=== PATIENT | male | born 1960 | race African-American/Black ===

== ENCOUNTER 2018-08-28 20:56 | Inpatient (IN) | payer BC ==
[2018-08-28] MEDS ORDERED: ASPIRIN 81 MG CHEWABLE TABLETS PO ONE (20:59)
--- NOTE | 2018-08-28 20:59 | PDOC ---
Rapid Medical Evaluation Time Seen by Provider: 08/28/18 20:58 Medical Evaluation: Allergies Allergy/AdvReac Type Severity Reaction Status Date / Time Penicillins Allergy Mild Rash Verified 07/26/13 06:52 08/28/18 20:58 I have performed a brief in-person evaluation of this patient. The patient presents with a chief complaint of: chest tightness with SOB. No pulmonary PMHx Pertinent physical exam findings: 221/115 AF. Speaking in full sentences. I have ordered the following: cardiac w/u The patient will proceed to the ED for further evaluation. Discharge Disposition - Diagnosis Chest tightness - Referrals - Patient Instructions - Post Discharge Activity
[2018-08-28] MEDS ORDERED: ASPIRIN 81 MG CHEWABLE TABLETS ONE (21:14)
[2018-08-28 21:21] LABS: EOS % 6.1 % (0-4.5); HEMATOCRIT 42.4 % (35.4-49); HEMOGLOBIN 14.8 GM/dL (11.7-16.9); LYMPH % 50.1 % (8-40); MCH 31.6 pg (25.7-33.7); MCHC 34.9 g/dl (32.0-35.9); MEAN CELL VOLUME 90.5 fl (80-96); MEAN PLT VOLUME 10.1 fl (7.5-11.1); NEUT % 35.8 % (42.8-82.8); PLATELET COUNT 149 K/MM3 (134-434); RBC 4.69 M/mm3 (4.00-5.60); RDW 13.2 % (11.9-15.9); WHITE BLOOD COUNT 7.5 K/mm3 (4.0-10.0)
[2018-08-28] MEDS ORDERED: HYDROCHLOROTHIAZIDE 25 MG TABLET (FP) PO ONE (21:44)
[2018-08-28] MEDS ORDERED: HYDROCHLOROTHIAZIDE 25 MG TABLET (FP) ONE (21:46)
[2018-08-28] MEDS ORDERED: amLODIPine BESYLATE 5 MG TABLET (FP) PO ONE (21:46)
[2018-08-28] MEDS ORDERED: amLODIPine BESYLATE 5 MG TABLET (FP) ONE (21:51)
[2018-08-28] MEDS ORDERED: ALBUTEROL SO4 2.5/IPRATROPIUM 0.5 INH SOL 3 ML VIAL.NEB. NEB ONE ×2 (21:55→21:57)
--- NOTE | 2018-08-28 22:02 | PDOC ---
Documentation entered by Bruna Luis SCRIBE, acting as scribe for Myra Glass MD. Myra Glass MD: This documentation has been prepared by the pinaibe, Bruna Luis SCRIBE, under my direction and personally reviewed by me in its entirety. I confirm that the documentation accurately reflects all work, treatment, procedures, and medical decision making performed by me. History of Present Illness - General Chief Complaint: Respiratory Stated Complaint: chest tightness/cough Time Seen by Provider: 08/28/18 20:58 History Source: Patient Exam Limitations: No Limitations - History of Present Illness Initial Comments: 08/28/18 21:43 The patient is a 58-year-old male with a past medical history significant for HTN (not compliant with Benicar) presents to the emergency department with chest tightness. The patient presents with intermittent, chest tightness, and cough, thats worse at night time. The patient reports the chest tightness is pleuritic in nature, states he feels like he cant take a good breath. The patient reports recent symptoms of nasal congestion couple of days ago and a single episode of lightheadedness on Monday. The patient reports he was drinking a Albert and watching TV when he felt lightheaded followed by an episode of NBNB vomiting. Denies substernal chest pain, symptoms radiating to the arm, diaphoresis, nausea, vomiting. Allergies: penicillins Social history: Half a pack a day for the past 10 years, social alcohol use. Denies the use of recreational drugs. Surgical history: right knee arthroscopy with PMM and PLM PCP: Dr. Ro. Past History - Past Medical History Allergies/Adverse Reactions: Allergies Allergy/AdvReac Type Severity Reaction Status Date / Time Penicillins Allergy Mild Rash Verified 08/28/18 21:04 Home Medications: Ambulatory Orders NK [No Known Home Medication] 08/28/18 COPD: No HTN: Yes - Immunization History Immunization Up to Date: No - Suicide/Smoking/Psychosocial Hx Smoking Status: No Smoking History: Unknown if ever smoked Have you smoked in the past 12 months: No Number of Cigarettes Smoked Daily: 7 Information on smoking cessation initiated: No 'Breaking Loose' booklet given: 07/25/13 Hx Alcohol Use: No Drug/Substance Use Hx: No Substance Use Type: Alcohol, Marijuana Hx Substance Use Treatment: No Review of Systems - Review of Systems Able to Perform ROS?: Yes Comments:: 08/28/18 21:41 CONSTITUTIONAL: Absent: fever, chills, diaphoresis, generalized weakness, malaise, loss of appetite HEENT: congestions. Absent: rhinorrhea, throat pain, throat swelling, difficulty swallowing, mouth swelling, ear pain, eye pain, visual Changes CARDIOVASCULAR: +chest tightness. Absent: chest pain, syncope, palpitations, irregular heart rate, lightheadedness , peripheral edema RESPIRATORY: +cough. Absent: shortness of breath, dyspnea with exertion, orthopnea, wheezing, stridor , hemoptysis GASTROINTESTINAL: Absent: abdominal pain, abdominal distension, nausea, vomiting, diarrhea, constipation, melena, hematochezia GENITOURINARY: Absent: dysuria, frequency, urgency, hesitancy, hematuria, flank pain, genital pain MUSCULOSKELETAL: Absent: myalgia, arthralgia, joint swelling SKIN: Absent: rash, itching, pallor HEMATOLOGIC/IMMUNOLOGIC: Absent: easy bleeding, easy bruising, lymphadenopathy, frequent infections ENDOCRINE: Absent: unexplained weight gain, unexplained weight loss, heat intolerance, cold intolerance NEUROLOGIC: Absent: headache, focal weakness or paresthesias, dizziness, unsteady gait, seizure, mental status changes, bladder or bowel incontinence PSYCHIATRIC: Absent: anxiety, depression, suicidal or homicidal ideation, hallucinations. *Physical Exam - Vital Signs Last Vital Signs Temp Pulse Resp BP Pulse Ox 98.0 F 73 16 202/123 H 98 08/28/18 20:59 08/28/18 20:59 08/28/18 20:59 08/28/18 20:59 08/28/18 20:59 - Physical Exam Comments: 08/28/18 21:41 GENERAL: Well developed, well nourished. Awake and alert. No acute distress. HEENT: Normocephalic, atraumatic. PERRLA, EOMI. No conjunctival pallor. Sclera are non- icteric. Moist mucous membranes. Oropharynx is clear. NECK: Supple. Full ROM. No JVD. no bruits. CARDIOVASCULAR: Regular rate and rhythm. No murmurs, rubs, or gallops. PULMONARY: +scant coarse expiratory wheezing. Lungs clear to auscultation bilaterally. No rales or rhonchi. ABDOMINAL: No abdominal pain. Soft. Non-tender. Non-distended. No rebound or guarding. MUSCULOSKELETAL Normal range of motion at all joints. No bony deformities or tenderness. No CVA tenderness. EXTREMITIES: No pitting edema. No cyanosis. No clubbing. No edema. No calf tenderness. SKIN: Warm and dry. Normal capillary refill. No rashes. No jaundice. NEUROLOGICAL: Alert, awake, oriented x3. Ambulatory without ataxia. PSYCHIATRIC: Cooperative. Good eye contact. Appropriate mood and affect. ED Treatment Course - LABORATORY CBC & Chemistry Diagram: 08/28/18 21:06 08/28/18 21:06 - ADDITIONAL ORDERS Additional order review: 08/28/18 21:06 RBC 4.69 MCV 90.5 MCHC 34.9 RDW 13.2 MPV 10.1 Neutrophils % 35.8 L Lymphocytes % 50.1 H Monocytes % 7.0 Eosinophils % 6.1 H Basophils % 1.0 - Medications Given in the ED: ED Medications Discontinued Medications Generic Name Dose Route Start Last Admin Trade Name Freq PRN Reason Stop Dose Admin Aspirin 162 mg 08/28/18 20:59 08/28/18 21:25 Asa - PO 08/28/18 21:00 162 mg ONCE ONE Administration Hydrochlorothiazide 25 mg 08/28/18 21:44 08/28/18 21:48 Hctz - PO 08/28/18 21:45 25 mg ONCE ONE Administration Medical Decision Making - Medical Decision Making 08/28/18 21:54 58-year-old male presents because of several days of chest tightness and cough. He denies fever, chills, but he states he's had some productive cough and nasal congestion. He does have seasonal allergies. The cough and chest tightness are worsen in the evening. On exam, he does have some scanttered coarse wheezing -the chest tightness he feels is pleuretic and associated with deep breaths -he presented with significant hypertension with systolic in the 200's but he denies any substernal chest pain,GÓMEZ,nausea,vomiting or visual changes,dizziness 08/28/18 23:03 he was given a combivent and now his lungs are clear and he feels much better cxr normal mediastinum,no ptx,no infiltrates,no effusions 08/28/18 23:27 cbc unremarkable chemistries first troponin is negative creatinine is wnl 08/28/18 23:41 08/29/18 02:10 d dimer is greater than 1500 and so therefore a CT of the chest was obtained and it does show a pulmonary embolus in the right lower lobe he will be admitted for anticoagulation and blood pressure control. PCP is 08/29/18 02:44 ordered INR/PTT 08/29/18 03:[address] Rivers and pt admitted to telemetry pt 's siblings had a history of brain aneurysms ,will get ct scan head prior to anti coagulation 08/29/18 03:30 *DC/Admit/Observation/Transfer Diagnosis at time of Disposition: Pulmonary embolism Qualifiers: Pulmonary embolism type: unspecified Chronicity: acute Acute cor pulmonale presence: without acute cor pulmonale Qualified Code(s): I26.99 - Other pulmonary embolism without acute cor pulmonale Hypertension Qualifiers: Hypertension type: essential hypertension Qualified Code(s): I10 - Essential ( primary) hypertension - Discharge Dispostion Decision to Admit order: Yes - Referrals - Patient Instructions - Post Discharge Activity
[2018-08-28 22:13] LABS: ALBUMIN 3.9 g/dl (3.4-5.0); ALK PHOS 124 U/L (45-117); ANION GAP 7 MMOL/L (8-16); BILIRUBIN,TOTAL 0.4 mg/dL (0.2-1); BLOOD UREA NITROGEN 13.4 mg/dL (7-18); CALCIUM 8.9 mg/dL (8.5-10.1); CHLORIDE 106 mmol/L (98-107); CO2 26 mmol/L (21-32); CREATININE 1.3 mg/dL (0.55-1.3); GLUCOSE,RANDOM 99 mg/dL (74-106); MAGNESIUM 2.2 mg/dL (1.8-2.4); POTASSIUM 4.2 mmol/L (3.5-5.1); SGOT/AST 42 U/L (15-37); SGPT/ALT 37 U/L (13-61); SODIUM 139 mmol/L (136-145); TOT PROT 7.2 g/dl (6.4-8.2)
[2018-08-28 22:34] LABS: INR 1.03 (0.83-1.09); PROTHROMBIN TIME (PATIENT) 12.1 SEC (9.7-13.0)
[2018-08-28] MEDS ORDERED: LABETALOL HCL 100 MG TABLET (FP) PO ONE (23:25)
[2018-08-28] MEDS ORDERED: LABETALOL HCL 100 MG TABLET (FP) ONE (23:31)
[2018-08-29] MEDS ORDERED: SODIUM CHLORIDE 1,000 ML IV STA (00:46)
[2018-08-29] MEDS ORDERED: VALSARTAN 40 MG TABLET (FP) PO ONE ×2 (01:57→03:12)
[2018-08-29] MEDS ORDERED: VALSARTAN 80 MG TABLET (UD) ONE ×2 (02:22→03:26)
[2018-08-29] MEDS ORDERED: HEPARIN NA (PORCINE) 5,000 UNITS/ML 1ML VIAL IVPUSH ONE ×2 (02:45→03:04)
[2018-08-29] MEDS ORDERED: HEPARIN NA (PORCINE) 5,000 UNITS/ML 1ML VIAL ONE (02:51)
[2018-08-29] MEDS ORDERED: SODIUM CHLORIDE 0.9% 500 ML INFUS.BAG IV ONE (04:03)
--- NOTE | 2018-08-29 04:13 | HP ---
Admitting History and Physical - Primary Care Physician PCP: Jennifer Ro - Admission Chief Complaint: Chest Tightness, Cough History of Present Illness: This is a 58 y/o man with a past medical history of HTN (non-compliant). Who presents to the ED with chest tightness and productive cough- white/yellow thick phlegm x several days. Patient reports noting increased SOB on rest, GLASS, orthopnea and wheezing. He reports that his cough his worse at night. Patient reports smoking Zaid (vape) for the last 3 weeks. Patient denies fever, chills, dizziness, GÓMEZ, blurred vision, palpitations, AP, N/V/D, constipation, dysuria. Patient denies recent travel. History Source: Patient Limitations to Obtaining History: No Limitations - Past Medical History Cardiovascular: Yes: HTN - Past Surgical History Additional Past Surgical History: Right Meniscal Repair - Smoking History Smoking history: Current every day smoker Have you smoked in the past 12 months: Yes Aproximately how many cigarettes per day: 7 - Alcohol/Substance Use Hx Alcohol Use: Yes (Occasional) History of Substance Use: reports: None - Social History Usual Living Arrangement: Yes: With Significant Other, With Child ADL: Independent Occupation: Clerical- [employer] History of Recent Travel: No Home Medications - Allergies Allergies/Adverse Reactions: Allergies Allergy/AdvReac Type Severity Reaction Status Date / Time Penicillins Allergy Mild Rash Verified 08/28/18 21:04 - Home Medications Home Medications: Ambulatory Orders NK [No Known Home Medication] 08/28/18 Home Medications (free text): Benicar 5mg po QD Family Disease History - Family Disease History Family Disease History: Heart Disease: Mother (CAD, HTN), CA: Father (Stomach), Respiratory: Brother (PE), Other: Sister (Brain Aneurysm) Review of Systems - Review of Systems Constitutional: reports: No Symptoms Eyes: reports: No Symptoms HENT: reports: No Symptoms Neck: reports: No Symptoms Cardiovascular: reports: Other (Chest Tightness) Respiratory: reports: Cough, Orthopnea, SOB, SOB on Exertion, Wheezing Gastrointestinal: reports: No Symptoms Genitourinary: reports: No Symptoms Breasts: reports: No Symptoms Reported Musculoskeletal: reports: No Symptoms Integumentary: reports: No Symptoms Neurological: reports: No Symptoms Endocrine: reports: No Symptoms Hematology/Lymphatic: reports: No Symptoms Psychiatric: reports: No Symptoms Physical Examination Vital Signs: Vital Signs Temperature 98.0 F 08/28/18 20:59 Pulse Rate 60 08/29/18 02:00 Respiratory Rate 18 08/28/18 22:17 Blood Pressure 178/104 H 08/29/18 03:00 O2 Sat by Pulse Oximetry (%) 97 08/29/18 02:00 Constitutional: Yes: Well Nourished, No Distress, Calm Eyes: Yes: WNL, Conjunctiva Clear, EOM Intact, PERRL HENT: Yes: WNL, Atraumatic, Normocephalic Neck: Yes: WNL, Supple, Trachea Midline Cardiovascular: Yes: WNL, Regular Rate and Rhythm, S1, S2 Respiratory: Yes: Diminished Gastrointestinal: Yes: WNL, Normal Bowel Sounds, Soft Renal/: Yes: WNL Breast(s): Yes: WNL Musculoskeletal: Yes: WNL Extremities: Yes: WNL Edema: No Peripheral Pulses WNL: Yes Neurological: Yes: WNL, Alert, Oriented, Cran Nerves II-XII Intact ...Motor Strength: WNL Psychiatric: Yes: WNL, Alert, Oriented Labs: CBC, BMP 08/28/18 21:06 08/28/18 21:06 Laboratory Results - last 24 hr 08/28/18 08/28/18 08/28/18 21:06 21:06 21:06 WBC 7.5 RBC 4.69 Hgb 14.8 Hct 42.4 MCV 90.5 MCH 31.6 MCHC 34.9 RDW 13.2 Plt Count 149 MPV 10.1 Absolute Neuts (auto) 2.7 Neutrophils % 35.8 L Lymphocytes % 50.1 H Monocytes % 7.0 Eosinophils % 6.1 H Basophils % 1.0 Nucleated RBC % 0 PT with INR 12.10 INR 1.03 PTT (Actin FS) D-Dimer Sodium 139 Potassium 4.2 Chloride 106 Carbon Dioxide 26 Anion Gap 7 L BUN 13.4 Creatinine 1.3 Est GFR (CKD-EPI)AfAm 70.69 Est GFR (CKD-EPI)NonAf 60.99 Random Glucose 99 Calcium 8.9 Magnesium 2.2 Total Bilirubin 0.4 AST 42 H ALT 37 Alkaline Phosphatase 124 H Creatine Kinase 436 H Creatine Kinase Index 0.7 CK-MB (CK-2) 3.1 Troponin I < 0.02 B-Natriuretic Peptide 36.0 Total Protein 7.2 Albumin 3.9 Stool Occult Blood 08/29/18 08/29/18 08/29/18 00:01 00:01 03:15 WBC RBC Hgb Hct MCV MCH MCHC RDW Plt Count MPV Absolute Neuts (auto) Neutrophils % Lymphocytes % Monocytes % Eosinophils % Basophils % Nucleated RBC % PT with INR Cancelled INR Cancelled PTT (Actin FS) D-Dimer 1536 H Sodium Potassium Chloride Carbon Dioxide Anion Gap BUN Creatinine Est GFR (CKD-EPI)AfAm Est GFR (CKD-EPI)NonAf Random Glucose Calcium Magnesium Total Bilirubin AST ALT Alkaline Phosphatase Creatine Kinase Creatine Kinase Index CK-MB (CK-2) Troponin I < 0.02 B-Natriuretic Peptide Total Protein Albumin Stool Occult Blood 08/29/18 08/29/18 03:54 04:00 WBC RBC Hgb Hct MCV MCH MCHC RDW Plt Count MPV Absolute Neuts (auto) Neutrophils % Lymphocytes % Monocytes % Eosinophils % Basophils % Nucleated RBC % PT with INR 12.00 INR 1.02 PTT (Actin FS) 30.1 D-Dimer Sodium Potassium Chloride Carbon Dioxide Anion Gap BUN Creatinine Est GFR (CKD-EPI)AfAm Est GFR (CKD-EPI)NonAf Random Glucose Calcium Magnesium Total Bilirubin AST ALT Alkaline Phosphatase Creatine Kinase Creatine Kinase Index CK-MB (CK-2) Troponin I B-Natriuretic Peptide Total Protein Albumin Stool Occult Blood Negative Intake & Output 08/26/18 08/27/18 08/28/18 08/29/18 23:59 23:59 23:59 23:59 Weight 104.326 kg Imaging - Results Cat Scan: Report Reviewed, Image Reviewed EKG: Image Reviewed Problem List - Problems (1) Hypertensive urgency Assessment/Plan: Likely secondary to non-compliance Cardiac monitoring Serial Enzymes Head CT- neg ICH, mass or lesion Labetolol, Norvasc, HCTZ given in ED Will continue Diovan secondary to Benicar NF Appreciate Cardiology consult Echo Renal US Continue home med Monitor renal function Code(s): I16.0 - HYPERTENSIVE URGENCY (2) Pulmonary embolism Assessment/Plan: CTA report- right sided PE Will treat with Lovenox Chest Xray image-reviewed Continue cardiac monitoring O2 Appreciate Pulmonology consult Code(s): I26.99 - OTHER PULMONARY EMBOLISM WITHOUT ACUTE COR PULMONALE Qualifiers: Pulmonary embolism type: unspecified Chronicity: acute Acute cor pulmonale presence: without acute cor pulmonale Qualified Code(s): I26.99 - Other pulmonary embolism without acute cor pulmonale (3) Tobacco dependence Assessment/Plan: Patient counseled on smoking cessation Offered Nicotine Patch- patient declined Code(s): F17.200 - NICOTINE DEPENDENCE, UNSPECIFIED, UNCOMPLICATED (4) Non-nicotine vapor product user Assessment/Plan: See above Code(s): Z78.9 - OTHER SPECIFIED HEALTH STATUS Assessment/Plan This is a 58 y/o man with a PMHx of HTN (non-compliant). Admitted to Telemetry for Hypertensive Urgency, Acute Pulmonary Embolism for further evaluation of their emergent condition. Plan: See Problem List FEN PO Fluids as tolerated Replete lytes prn Low Na Diet DVT ppx OOB SCD Lovenox SQ Dispo: Requires Inpatient Care Visit type - Emergency Visit Emergency Visit: Yes ED Registration Date: 08/28/18 Care time: The patient presented to the Emergency Department on the above date and was hospitalized for further evaluation of their emergent condition. - New Patient This patient is new to me today: Yes Date on this admission: 08/29/18 - Critical Care Critical Care patient: No
[2018-08-29 04:30] LABS: INR 1.02 (0.83-1.09)
[2018-08-29 04:33] LABS: ACTIVATED PTT 30.1 SECONDS (25.2-36.5)
[2018-08-29] MEDS ORDERED: ENOXAPARIN NA (PORCINE) 100 MG/1 ML DISP.SYRIN SQ ONE (04:47)
[2018-08-29] MEDS: ENOXAPARIN NA (PORCINE) 100 MG/1 ML DISP.SYRIN SQ SCH ×2 (04:50→22:34)
--- NOTE | 2018-08-29 08:52 | EKG ---
Test Reason : Blood Pressure : / mmHG Vent. Rate : 065 BPM Atrial Rate : 065 BPM P-R Int : 152 ms QRS Dur : 092 ms QT Int : 398 ms P-R-T Axes : 071 -07 042 degrees QTc Int : 413 ms NORMAL SINUS RHYTHM SEPTAL INFARCT , AGE UNDETERMINED ABNORMAL ECG NO PREVIOUS ECGS AVAILABLE Confirmed by MARTINA TORRES, IKE ([id number]) on 08/29/2018 8:51:48 AM Referred By: Confirmed By:IKE MACK MD
[2018-08-29 10:01] LABS: BASO % 0.8 % (0-2.0); EOS % 6.4 % (0-4.5); HEMATOCRIT 45.2 % (35.4-49); HEMOGLOBIN 15.3 GM/dL (11.7-16.9); LYMPH % 40.4 % (8-40); MCH 30.5 pg (25.7-33.7); MCHC 33.8 g/dl (32.0-35.9); MEAN CELL VOLUME 90.3 fl (80-96); MEAN PLT VOLUME 9.8 fl (7.5-11.1); MONO % 6.6 % (3.8-10.2); NEUT % 45.8 % (42.8-82.8); PLATELET COUNT 159 K/MM3 (134-434); WHITE BLOOD COUNT 5.4 K/mm3 (4.0-10.0)
[2018-08-29 10:30] LABS: ALBUMIN 4.2 g/dl (3.4-5.0); ALK PHOS 97 U/L (45-117); ANION GAP 7 MMOL/L (8-16); BILIRUBIN,TOTAL 0.4 mg/dL (0.2-1); BLOOD UREA NITROGEN 11.5 mg/dL (7-18); CALCIUM 9.2 mg/dL (8.5-10.1); CHLORIDE 105 mmol/L (98-107); CHOLESTEROL 153 mg/dL (50-200); CO2 27 mmol/L (21-32); CREATININE 1.1 mg/dL (0.55-1.3); GLUCOSE,RANDOM 119 mg/dL (74-106); HDL CHOLESTEROL 56 mg/dL (40-60); MAGNESIUM 2.2 mg/dL (1.8-2.4); PHOSPHOROUS 3.5 mg/dL (2.5-4.9); POTASSIUM 3.7 mmol/L (3.5-5.1); SGOT/AST 36 U/L (15-37); SGPT/ALT 40 U/L (13-61); SODIUM 139 mmol/L (136-145); TOT PROT 7.6 g/dl (6.4-8.2); TRIGLYCERIDES 96 mg/dL (0-150)
[2018-08-29] MEDS: VALSARTAN 40 MG TABLET (FP) PO SCH (11:30)
[2018-08-29] MEDS ORDERED: ALBUTEROL SO4 2.5/IPRATROPIUM 0.5 INH SOL 3 ML VIAL.NEB. NEB ONE (11:38)
[2018-08-29] MEDS: ALBUTEROL SO4 2.5/IPRATROPIUM 0.5 INH SOL 3 ML VIAL.NEB. NEB PRN (11:44)
--- NOTE | 2018-08-29 13:10 | CON.PULM ---
Consult Consult Specialty:: PULMONARY Referred by:: Dr Ro Reason for Consultation:: shortness of breath - History of Present Illness Chief Complaint: shortness of breath History of Present Illness: 58yo male with h/o HTN who presents with worsening shortness of breath for the past week. Denies chest pain or palpitations. Does report a cough with white sputum with occasional wheezing. No fevers, chills or sweats. CTA chest done showing bilateral subsegmental pulmonary emboli. Denies prolonged sedentary periods or leg trauma. No recent surgeries. He is a smoker. Brother at bedside states he had pulmonary emboli in the past and has a lipoprotein disorder. 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[employer] History of Recent Travel: No Home Medications - Allergies Allergies/Adverse Reactions: Allergies Allergy/AdvReac Type Severity Reaction Status Date / Time Penicillins Allergy Mild Rash Verified 08/28/18 21:04 - Home Medications Home Medications: Ambulatory Orders NK [No Known Home Medication] 08/28/18 Family Disease History - Family Disease History Family Disease History: Heart Disease: Mother (CAD, HTN), CA: Father (Stomach), Respiratory: Brother (PE), Other: Sister (Brain Aneurysm) Review of Systems - Review of Systems Constitutional: denies: Chills, Fever Eyes: denies: Recent Change in Vision HENT: denies: Nasal Congestion, Throat Pain Neck: denies: Stiffness, Tenderness Cardiovascular: reports: Shortness of Breath. denies: Chest Pain, Palpitations Respiratory: reports: Cough, Wheezing. denies: Hemoptysis Gastrointestinal: denies: Abdominal Pain, Nausea, Vomiting Genitourinary: denies: Dysuria, Hematuria Neurological: denies: Dizziness, Headache Endocrine: denies: Unexplained Weight Loss Physical Exam Vital Sings: Vital Signs Temperature 97.1 F L 08/29/18 11:54 Pulse Rate 63 08/29/18 11:54 Respiratory Rate 18 08/29/18 11:54 Blood Pressure 136/90 08/29/18 11:54 O2 Sat by Pulse Oximetry (%) 97 08/29/18 06:00 Constitutional: Yes: Calm Eyes: Yes: Conjunctiva Clear, EOM Intact HENT: Yes: Atraumatic, Normocephalic Neck: Yes: Supple, Trachea Midline Cardiovascular: Yes: Regular Rate and Rhythm Respiratory: Yes: Regular, CTA Bilaterally ...Clubbing: No Gastrointestinal: Yes: Normal Bowel Sounds, Soft. No: Tenderness Edema: No Neurological: Yes: Alert, Oriented Labs: CBC, BMP 08/29/18 09:37 08/29/18 09:37 Imaging - Results Chest X-ray: Report Reviewed, Image Reviewed Cat Scan: Report Reviewed, Image Reviewed (bilateral subsegmental PE) Problem List - Problems (1) Pulmonary embolism Code(s): I26.99 - OTHER PULMONARY EMBOLISM WITHOUT ACUTE COR PULMONALE Qualifiers: Pulmonary embolism type: unspecified Chronicity: acute Acute cor pulmonale presence: without acute cor pulmonale Qualified Code(s): I26.99 - Other pulmonary embolism without acute cor pulmonale (2) Hypertensive urgency Code(s): I16.0 - HYPERTENSIVE URGENCY Assessment/Plan Acute Pulmonary Emboli Hypertensive Urgency Smoker - continue anticoagulation - will need hypercoagulable work up as outpt given family history - f/u echocardiogram - LE dopplers - smoking cessation - outpt PFTs Thank you for this consult Jose Duran MD
--- NOTE | 2018-08-29 14:10 | ECHO ---
Name: RODRIGUEZ YANG Exam:Adult Echocardiogram Study Date: 08/29/2018 07:54 AM Age: 58 yrs Reason For Study: PULMONARY EMBOLISM Height: 74 in Weight: 238 lb BSA: 2.3 m2 MMode/2D Measurements & Calculations IVSd: 0.80 cm Ao root diam: 3.2 cm LVIDd: 4.9 cm LA dimension: 2.9 cm LVIDs: 3.0 cm LVPWd: 0.77 cm EDV(Teich): 114.1 ml LVOT diam: 2.3 cm ESV(Teich): 36.4 ml Doppler Measurements & Calculations MV E max darrell: 57.3 cm/sec Ao V2 max: 108.6 cm/sec MV A max darrell: 48.9 cm/sec Ao max P.7 mmHg MV E/A: 1.2 Ao V2 mean: 70.9 cm/sec Ao mean P.3 mmHg Ao V2 VTI: 20.0 cm LOIS(I,D): 3.3 cm2 LOIS(V,D): 3.2 cm2 LV V1 max P.8 mmHg SV(LVOT): 66.4 ml LV V1 mean P.3 mmHg LV V1 max: 83.4 cm/sec LV V1 mean: 53.4 cm/sec LV V1 VTI: 16.2 cm TR max darrell: 254.6 cm/sec PI end-d darrell: 84.4 cm/sec TR max P.9 mmHg Med Peak E' Darrell: 6.1 cm/sec Med E/e': 9.3 Lat Peak E' Darrell: 6.6 cm/sec Lat E/e': 8.7 Procedure A two-dimensional transthoracic echocardiogram with color flow and Doppler was performed. Left Ventricle The left ventricular size, thickness and function are normal. The left ventricular ejection fraction is normal. The left ventricular wall motion is normal. Right Ventricle The right ventricle is normal in size and function. Atria Normal left and right atrial size and function. The atrial septum is aneurysmal. Mitral Valve There is mild mitral valve thickening. There is no mitral valve stenosis. There is trace to mild mitr al regurgitation. Tricuspid Valve The tricuspid valve is normal in structure and function. There is no tricuspid stenosis. There is Tra ce to mild tricuspid regurgitation. Right ventricular systolic pressure is normal. Aortic Valve The aortic valve is not well visualized. No hemodynamically significant valvular aortic stenosis. No aortic regurgitation is present. Pulmonic Valve The pulmonic valve is not well visualized. There is no pulmonic valvular stenosis. Mild pulmonic valv ular regurgitation. Great Vessels The aortic root is normal size. Pericardium/Pleura There is no pericardial effusion. Interpretation Summary The left ventricular size, thickness and function are normal The left ventricular ejection fraction is normal. The left ventricular wall motion is normal. There is mild mitral valve thickening. There is trace to mild mitral regurgitation. There is Trace to mild tricuspid regurgitation. Right ventricular systolic pressure is normal. The atrial septum is aneurysmal. MD Lucien Hilton 08/29/2018 02:09 PM
--- NOTE | 2018-08-29 17:02 | CON.CARD ---
Consult Consult Specialty:: Cardiology Reason for Consultation:: HTN. SOB. Chest Pain - History of Present Illness Chief Complaint: Presently he is comfortable History of Present Illness: This is a 58-year-old male with a past medical history significant for HTN (not compliant with Benicar). He has been experiencing some GLASS which he states is worse after he vaps. He also intermittently smokes. He also complained of pleuritc chest pain, worse with a deep breath. An echocardiogram was performed and showed normal LV size and function, and normal RV size and function. EKG NSR at 62 BPM with normal intervals, normal axis, PRWP from V1 to V2 and NSSTTW changes. ' Negative troponins - Past Medical History Cardio/Vascular: Yes: HTN - Alcohol/Substance Use Hx Alcohol Use: Yes (Occasional) History of Substance Use: reports: None - Smoking History Smoking history: Current every day smoker Have you smoked in the past 12 months: Yes Aproximately how many cigarettes per day: 7 - Social History ADL: Independent Occupation: Clerical- [employer] History of Recent Travel: No Home Medications - Allergies Allergies/Adverse Reactions: Allergies Allergy/AdvReac Type Severity Reaction Status Date / Time Penicillins Allergy Mild Rash Verified 08/28/18 21:04 - Home Medications Home Medications: Ambulatory Orders NK [No Known Home Medication] 08/28/18 Family Disease History - Family Disease History Family Disease History: Heart Disease: Mother (CAD, HTN), CA: Father (Stomach), Respiratory: Brother (PE), Other: Sister (Brain Aneurysm) Review of Systems Unable to obtain ROS, reason: As per HPI Vital Signs: Vital Signs Temperature 97.1 F L 08/29/18 11:54 Pulse Rate 63 08/29/18 11:54 Respiratory Rate 18 08/29/18 11:54 Blood Pressure 136/90 08/29/18 11:54 O2 Sat by Pulse Oximetry (%) 97 08/29/18 06:00 - Other Data Labs, Other Data: CBC, BMP 08/29/18 09:37 08/29/18 09:37 INR, PTT INR 1.02 (0.83-1.09) 08/29/18 04:00 Troponin, BNP 08/28/18 08/29/18 08/29/18 21:06 00:01 09:37 Troponin I < 0.02 < 0.02 < 0.02 B-Natriuretic Peptide 36.0 08/29/18 15:00 Troponin I < 0.02 B-Natriuretic Peptide Troponin, BNP 08/28/18 08/29/18 08/29/18 21:06 00:01 09:37 Troponin I < 0.02 < 0.02 < 0.02 B-Natriuretic Peptide 36.0 08/29/18 15:00 Troponin I < 0.02 B-Natriuretic Peptide Assessment/Plan 58-year-old male with a past medical history significant for HTN (not compliant with Benicar). He has been experiencing some GLASS which he states is worse after he vaps. He also intermittently smokes. He also complained of pleuritc chest pain, worse with a deep breath. An echocardiogram was performed and showed normal LV size and function, and normal RV size and function. EKG NSR at 62 BPM with normal intervals, normal axis, PRWP from V1 to V2 and NSSTTW changes. ' Negative troponins BP now under good control CT scan states: "bilateral lower love emboli seen, greater on the right" Agree with AC Positive FH for hypercoaguable state BP presently under good control Yulia Swenson
--- NOTE | 2018-08-29 17:14 | PN ---
Progress Note, Physician Chief Complaint: Pulmonary Embolism Hypertensive Urgency History of Present Illness: Previous notes and events reviewed awake and alert NAD denies complaints of SOB or chest pain - Current Medication List Current Medications: Active Medications Albuterol/Ipratropium (Duoneb -) 1 amp NEB Q6H PRN PRN Reason: SHORTNESS OF BREATH Last Admin: 08/29/18 11:44 Dose: 1 amp Enoxaparin Sodium (Lovenox -) 100 mg SQ BID [facility] Last Admin: 08/29/18 04:50 Dose: 100 mg Valsartan (Diovan -) 40 mg PO DAILY [facility] Last Admin: 08/29/18 11:30 Dose: 40 mg - Objective Vital Signs: Vital Signs Temperature 97.1 F L 08/29/18 11:54 Pulse Rate 63 08/29/18 11:54 Respiratory Rate 18 08/29/18 11:54 Blood Pressure 136/90 08/29/18 11:54 O2 Sat by Pulse Oximetry (%) 97 08/29/18 06:00 Constitutional: Yes: No Distress, Calm Eyes: Yes: Conjunctiva Clear HENT: Yes: Atraumatic Cardiovascular: Yes: Regular Rate and Rhythm Respiratory: Yes: Regular, CTA Bilaterally Gastrointestinal: Yes: Normal Bowel Sounds, Soft Musculoskeletal: Yes: WNL Extremities: Yes: WNL Edema: No Neurological: Yes: Alert, Oriented Psychiatric: Yes: Alert, Oriented Labs: CBC, BMP 08/29/18 09:37 08/29/18 09:37 INR, PTT INR 1.02 (0.83-1.09) 08/29/18 04:00 Troponin, BNP 08/28/18 08/29/18 08/29/18 21:06 00:01 09:37 Troponin I < 0.02 < 0.02 < 0.02 B-Natriuretic Peptide 36.0 08/29/18 15:00 Troponin I < 0.02 B-Natriuretic Peptide Problem List - Problems (1) Hypertensive urgency Assessment/Plan: -Diovan -low Na diet -cardiology on board Code(s): I16.0 - HYPERTENSIVE URGENCY (2) Pulmonary embolism Assessment/Plan: -Cardiology and Pulm on board -CTA shows bilateral lower lobe emboli greater on R -Lovenox 100mg SQ BID -bilateral LE doppler ordered -hypercoaguable state work up as outpatient Code(s): I26.99 - OTHER PULMONARY EMBOLISM WITHOUT ACUTE COR PULMONALE Qualifiers: Pulmonary embolism type: unspecified Chronicity: acute Acute cor pulmonale presence: without acute cor pulmonale Qualified Code(s): I26.99 - Other pulmonary embolism without acute cor pulmonale Assessment/Plan see problem list
[2018-08-30 00:32] VITALS: BMI 30.6
[2018-08-30 07:56] LABS: ALBUMIN 3.9 g/dl (3.4-5.0); BILIRUBIN,TOTAL 0.4 mg/dL (0.2-1); BLOOD UREA NITROGEN 13.1 mg/dL (7-18); CALCIUM 9.1 mg/dL (8.5-10.1); CREATININE 1.1 mg/dL (0.55-1.3); TOT PROT 7.2 g/dl (6.4-8.2)
[2018-08-30] MEDS: ALBUTEROL SO4 2.5/IPRATROPIUM 0.5 INH SOL 3 ML VIAL.NEB. NEB PRN (08:14)
[2018-08-30 08:40] LABS: HEMATOCRIT 45.3 % (35.4-49); HEMOGLOBIN 15.3 GM/dL (11.7-16.9); MCH 30.6 pg (25.7-33.7); MCHC 33.8 g/dl (32.0-35.9); MEAN CELL VOLUME 90.6 fl (80-96); RDW 13.6 % (11.9-15.9); WHITE BLOOD COUNT 5.9 K/mm3 (4.0-10.0)
[2018-08-30 09:15] LABS: PLATELET COUNT 162 K/MM3 (134-434)
--- NOTE | 2018-08-30 11:08 | PN ---
Progress Note (short form) - Note Progress Note: No CP or SOB. No acute events overnight. Duplex (-) DVT ECHO: EF normal / No Right heart strain Intake & Output 08/27/18 08/28/18 08/29/18 08/30/18 23:59 23:59 23:59 23:59 Intake Total 370 Balance 370 Weight 230 lb 238 lb 9.6 oz Last Vital Signs Temp Pulse Resp BP Pulse Ox 98.0 F 61 18 153/96 95 08/30/18 06:00 08/30/18 06:00 08/30/18 06:00 08/30/18 06:00 08/30/18 05:00 Active Medications Albuterol/Ipratropium (Duoneb -) 1 amp NEB Q6H PRN PRN Reason: SHORTNESS OF BREATH Last Admin: 08/30/18 08:14 Dose: 1 amp Enoxaparin Sodium (Lovenox -) 100 mg SQ BID [facility] Last Admin: 08/29/18 22:34 Dose: 100 mg Valsartan (Diovan -) 40 mg PO DAILY [facility] Last Admin: 08/29/18 11:30 Dose: 40 mg Constitutional: Yes: NAD Eyes: Yes: Conjunctiva Clear, EOM Intact HENT: Yes: Atraumatic, Normocephalic Neck: Yes: Supple, Trachea Midline Cardiovascular: Yes: Regular Rate and Rhythm Respiratory: Yes: Regular, CTA Bilaterally ...Clubbing: No Gastrointestinal: Yes: Normal Bowel Sounds, Soft. No: Tenderness Edema: No Neurological: Yes: Alert, Oriented Labs: Laboratory Results - last 24 hr 08/29/18 08/30/18 08/30/18 15:00 06:05 06:05 WBC 5.9 RBC 5.00 Hgb 15.3 Hct 45.3 MCV 90.6 MCH 30.6 MCHC 33.8 RDW 13.6 Plt Count 162 MPV 11.0 D Sodium 140 Potassium 4.0 Chloride 106 Carbon Dioxide 28 Anion Gap 6 L BUN 13.1 Creatinine 1.1 Est GFR (CKD-EPI)AfAm 86.52 Est GFR (CKD-EPI)NonAf 74.65 Random Glucose 86 Calcium 9.1 Total Bilirubin 0.4 AST 27 ALT 34 Alkaline Phosphatase 98 Troponin I < 0.02 Total Protein 7.2 Albumin 3.9 Problem List - Problems (1) Pulmonary embolism Code(s): I26.99 - OTHER PULMONARY EMBOLISM WITHOUT ACUTE COR PULMONALE Qualifiers: Pulmonary embolism type: unspecified Chronicity: acute Acute cor pulmonale presence: without acute cor pulmonale Qualified Code(s): I26.99 - Other pulmonary embolism without acute cor pulmonale (2) Hypertensive urgency Code(s): I16.0 - HYPERTENSIVE URGENCY Assessment/Plan Acute Bilateral Pulmonary Emboli Hypertensive Urgency Smoker (-) DVT - Lovenox BID. Can change to DOAC - will need hypercoagulable work up as outpt given family history - smoking cessation - outpt PFTs Dr Cabrera
[2018-08-30] MEDS: VALSARTAN 40 MG TABLET (FP) PO SCH (11:39)
[2018-08-30] MEDS: ENOXAPARIN NA (PORCINE) 100 MG/1 ML DISP.SYRIN SQ SCH (11:39)
--- NOTE | 2018-08-30 13:29 | PN ---
Progress Note, Physician Chief Complaint: patient seen and examined on lovenox bid - Current Medication List Current Medications: Active Medications Albuterol/Ipratropium (Duoneb -) 1 amp NEB Q6H PRN PRN Reason: SHORTNESS OF BREATH Last Admin: 08/30/18 08:14 Dose: 1 amp Enoxaparin Sodium (Lovenox -) 100 mg SQ BID [facility] Last Admin: 08/30/18 11:39 Dose: 100 mg Valsartan (Diovan -) 40 mg PO DAILY [facility] Last Admin: 08/30/18 11:39 Dose: 40 mg - Objective Vital Signs: Vital Signs Temperature 97.5 F L 08/30/18 13:21 Pulse Rate 62 08/30/18 13:21 Respiratory Rate 18 08/30/18 13:21 Blood Pressure 127/73 08/30/18 13:21 O2 Sat by Pulse Oximetry (%) 95 08/30/18 05:00 Constitutional: Yes: Calm Cardiovascular: Yes: Regular Rate and Rhythm, S1, S2 Respiratory: Yes: CTA Bilaterally Gastrointestinal: Yes: Normal Bowel Sounds, Soft Edema: No Neurological: Yes: Alert, Oriented Labs: CBC, BMP 08/30/18 06:05 08/30/18 06:05 INR, PTT INR 1.02 (0.83-1.09) 08/29/18 04:00 Problem List - Problems (1) Hypertension Assessment/Plan: [place] Code(s): I10 - ESSENTIAL (PRIMARY) HYPERTENSION Qualifiers: Hypertension type: essential hypertension Qualified Code(s): I10 - Essential (primary) hypertension (2) Pulmonary embolism Assessment/Plan: change lovenox to eliquis echo left and right ventricle systolic pressure normal venous doppler no dvt Code(s): I26.99 - OTHER PULMONARY EMBOLISM WITHOUT ACUTE COR PULMONALE Qualifiers: Pulmonary embolism type: unspecified Chronicity: acute Acute cor pulmonale presence: without acute cor pulmonale Qualified Code(s): I26.99 - Other pulmonary embolism without acute cor pulmonale
--- NOTE | 2018-08-30 15:40 | PN ---
Progress Note, Physician Chief Complaint: Presently comfortable History of Present Illness: This is a 58-year-old male with a past medical history significant for HTN (not compliant with Benicar). He has been experiencing some GLASS which he states is worse after he vaps. He also intermittently smokes. He also complained of pleuritc chest pain, worse with a deep breath. An echocardiogram was performed and showed normal LV size and function, and normal RV size and function. EKG NSR at 62 BPM with normal intervals, normal axis, PRWP from V1 to V2 and NSSTTW changes. ' Negative troponins CT scan positive for PE's - bilateral lower lobes - Current Medication List Current Medications: Active Medications Albuterol/Ipratropium (Duoneb -) 1 amp NEB Q6H PRN PRN Reason: SHORTNESS OF BREATH Last Admin: 08/30/18 08:14 Dose: 1 amp Apixaban (Eliquis -) 5 mg PO BID [facility] Valsartan (Diovan -) 40 mg PO DAILY [facility] Last Admin: 08/30/18 11:39 Dose: 40 mg - Objective Vital Signs: Vital Signs Temperature 97.5 F L 08/30/18 13:21 Pulse Rate 62 08/30/18 13:21 Respiratory Rate 18 08/30/18 13:21 Blood Pressure 127/73 08/30/18 13:21 O2 Sat by Pulse Oximetry (%) 95 08/30/18 05:00 Constitutional: Yes: Well Nourished Eyes: Yes: WNL HENT: Yes: WNL Neck: Yes: WNL, Tenderness Cardiovascular: Yes: S1, S2 Respiratory: Yes: CTA Bilaterally Gastrointestinal: Yes: Normal Bowel Sounds Extremities: Yes: WNL Edema: No Neurological: Yes: Alert, Oriented Labs: CBC, BMP 08/30/18 06:05 08/30/18 06:05 INR, PTT INR 1.02 (0.83-1.09) 08/29/18 04:00 Assessment/Plan 58-year-old male with a past medical history significant for HTN (not compliant with Benicar). He has been experiencing some GLASS which he states is worse after he vaps. He also intermittently smokes. He also complained of pleuritc chest pain, worse with a deep breath. An echocardiogram was performed and showed normal LV size and function, and normal RV size and function. EKG NSR at 62 BPM with normal intervals, normal axis, PRWP from V1 to V2 and NSSTTW changes. ' Negative troponins BP now under good control CT scan states: "bilateral lower lobe emboli seen, greater on the right" Agree with AC with apixaban 5 mg PO BID Positive FH for hypercoaguable state BP presently under good control Continue Leela
[2018-08-30] MEDS: APIXABAN 5 MG TABLET PO SCH (21:35)
[2018-08-31 08:04] LABS: ALBUMIN 3.8 g/dl (3.4-5.0); ALK PHOS 87 U/L (45-117); ANION GAP 5 MMOL/L (8-16); BILIRUBIN,TOTAL 0.5 mg/dL (0.2-1); CHLORIDE 105 mmol/L (98-107); CO2 29 mmol/L (21-32); CREATININE 1.1 mg/dL (0.55-1.3); GLUCOSE,RANDOM 84 mg/dL (74-106); SGOT/AST 27 U/L (15-37); SGPT/ALT 29 U/L (13-61); SODIUM 139 mmol/L (136-145)
[2018-08-31 08:22] LABS: BASO % 0.9 % (0-2.0); EOS % 6.1 % (0-4.5); HEMATOCRIT 44.6 % (35.4-49); HEMOGLOBIN 15.2 GM/dL (11.7-16.9); LYMPH % 52.7 % (8-40); MCH 30.7 pg (25.7-33.7); MCHC 34.1 g/dl (32.0-35.9); MEAN CELL VOLUME 90.1 fl (80-96); MEAN PLT VOLUME 10.1 fl (7.5-11.1); MONO % 9.5 % (3.8-10.2); NEUT % 30.8 % (42.8-82.8); PLATELET COUNT 170 K/MM3 (134-434); RBC 4.95 M/mm3 (4.00-5.60); RDW 13.3 % (11.9-15.9); WHITE BLOOD COUNT 4.7 K/mm3 (4.0-10.0)
[2018-08-31] MEDS: APIXABAN 5 MG TABLET PO SCH (10:40)
[2018-08-31] MEDS: VALSARTAN 40 MG TABLET (FP) PO SCH (10:40)
[2018-08-31 11:16] VITALS: BP 144/74; PULSE 65; TEMP 97.8
--- NOTE | 2018-08-31 11:23 | PN ---
Progress Note (short form) - Note Progress Note: PULMONARY AWAKE/ALERT NO PLEURITIC CP NO SOB/NO CALF TENDERNESS VSS/AFEBRILE Constitutional: Yes: NAD Eyes: Yes: Conjunctiva Clear, EOM Intact HENT: Yes: Atraumatic, Normocephalic Neck: Yes: Supple, Trachea Midline Cardiovascular: Yes: Regular Rate and Rhythm Respiratory: Yes: Regular, CTA Bilaterally ...Clubbing: No Gastrointestinal: Yes: Normal Bowel Sounds, Soft. No: Tenderness Edema: No Neurological: Yes: Alert, Oriented LABS: NOTED CTA/ECHO/DUPLEX REVIEWED Acute Bilateral Pulmonary Emboli Hypertensive Urgency Smoker (-) DVT - Lovenox BID changed to DOAC - will need hypercoagulable work up as outpt given family history - smoking cessation - outpt pft's Jessica GUTIÉRREZ MD
--- NOTE | 2018-08-31 12:38 | DS ---
Physical Examination Vital Signs: Vital Signs Temperature 97.8 F 08/31/18 10:00 Pulse Rate 65 08/31/18 10:00 Respiratory Rate 20 08/31/18 10:00 Blood Pressure 144/74 08/31/18 10:00 O2 Sat by Pulse Oximetry (%) 95 08/30/18 21:00 Constitutional: Yes: Calm Neck: Yes: Trachea Midline Cardiovascular: Yes: Regular Rate and Rhythm, S1, S2 Respiratory: Yes: CTA Bilaterally Gastrointestinal: Yes: Normal Bowel Sounds, Soft Edema: No Neurological: Yes: Alert, Oriented Labs: CBC, BMP 08/31/18 07:01 08/31/18 07:01 Discharge Summary Reason For Visit: PULMONARY EMBOLISM, HYPERTENSION Current Active Problems Hypertension (Acute) Hypertensive urgency (Acute) Non-nicotine vapor product user (Acute) Pulmonary embolism (Acute) Tobacco dependence (Acute) Other Procedures: ECHO no right heart strain,. renal sono normal kidneys. doppler no DVT Hospital Course: - Primary Care Physician PCP: Jennifer Ro - Admission Chief Complaint: Chest Tightness, Cough History of Present Illness: This is a 58 y/o man with a past medical history of HTN (non-compliant). Who presents to the ED with chest tightness and productive cough- white/yellow thick phlegm x several days. Patient reports noting increased SOB on rest, GLASS, orthopnea and wheezing. He reports that his cough his worse at night. Patient reports smoking Zaid (vape) for the last 3 weeks. Patient denies fever, chills, dizziness, GÓMEZ, blurred vision, palpitations, AP, N/V/D, constipation, dysuria. Patient denies recent travel. admitted CTA postive for PE in lower lobe lovenox to [facility] HTN diovan controlled BP Condition: Improved - Instructions Referrals: Jennifer Ro MD [Primary Care Provider] - 1 Week (september 06 at 3:15 pm at [facility]) Disposition: HOME - Home Medications Comprehensive Discharge Medication List: Ambulatory Orders NK [No Known Home Medication] 08/28/18
== END 2018-08-31 14:05 | disposition home or self-care (01) | DRG 176 ==
LOC: JER 20:56 → JERBED 08-29 02:42 → J4S 08-29 23:40
PROVIDERS: ADMIT Family Medicine; ATTEND Family Medicine
DX: I26.99 Other pulmonary embolism without acute cor pulmonale (principal); I16.0 Hypertensive urgency; I10 Essential (primary) hypertension; F17.210 Nicotine dependence, cigarettes, uncomplicated; Z91.14 Patient's other noncompliance with medication regimen; F12.10 Cannabis abuse, uncomplicated; F10.10 Alcohol abuse, uncomplicated
CPT/HCPCS: 36415; 70450-TC; 71046-TC-FY; 71275-TC; 76775-TC; 80053; 80061; 82272; 82550; 82553; 83721; 83735; 83880; 84100; 84443; 84484; 85025; 85027; 85379; 85610; 85730; 93005; 93010; 93306-TC; 93970-TC; 94640; 99284-25; J7030

== ENCOUNTER 2022-03-19 19:25 | Observation (INO) | payer BC ==
[2022-03-19] MEDS ORDERED: DEXAMETHASONE LIQUID 0.5 MG/5 ML PO ONE (19:50)
[2022-03-19] MEDS ORDERED: ALBUTEROL SO4 2.5/IPRATROPIUM 0.5 INH SOL 3 ML VIAL.NEB. NEB ONE (20:09)
[2022-03-19] MEDS ORDERED: DEXAMETHASONE SOD PHOSPHATE 10 MG/1 ML VIAL ONE (20:09)
[2022-03-19] MEDS: ALBUTEROL SO4 2.5/IPRATROPIUM 0.5 INH SOL 3 ML VIAL.NEB. NEB SCH ×2 (20:16→21:25)
[2022-03-19 20:25] LABS: BASO % 0.9 % (0-2.0); EOS % 7.4 % (0-4.5); HEMATOCRIT 45.5 % (35.4-49); HEMOGLOBIN 15.1 GM/dL (11.7-16.9); LYMPH % 31.5 % (8-40); MCH 29.6 pg (25.7-33.7); MCHC 33.1 g/dl (32.0-35.9); MEAN CELL VOLUME 89.5 fl (80-96); MONO % 8.6 % (3.8-10.2); NEUT % 51.6 % (42.8-82.8); PLATELET COUNT 211 10^3/uL (134-434); RBC 5.08 M/mm3 (4.00-5.60); RDW 13.1 % (11.9-15.9); WHITE BLOOD COUNT 5.3 K/mm3 (4.0-10.0)
[2022-03-19 20:45] LABS: CALCIUM 9.4 mg/dL (8.5-10.1)
[2022-03-19 20:48] LABS: CREATININE 1.4 mg/dL (0.55-1.3)
[2022-03-19 20:50] LABS: BILIRUBIN,TOTAL 0.3 mg/dL (0.2-1); TOT PROT 7.9 g/dl (6.4-8.2)
[2022-03-19] MEDS ORDERED: SODIUM CHLORIDE 0.9% 500 ML INFUS.BAG IV ONE (21:03)
[2022-03-19 21:36] LABS: INR 1.88 (0.83-1.09); PROTHROMBIN TIME (PATIENT) 21.7 SEC (9.7-13.0)
[2022-03-19] MEDS ORDERED: ASPIRIN 325 MG ENTERIC COATED TABLET (FP) PO ONE (22:58)
[2022-03-19] MEDS ORDERED: ATORVASTATIN CA 80 MG TABLET (FP) PO ONE (22:59)
[2022-03-19] MEDS ORDERED: ATORVASTATIN CA 80 MG TABLET (FP) ONE (23:03)
[2022-03-19] MEDS ORDERED: ASPIRIN 325 MG TABLET ONE (23:03)
[2022-03-19] MEDS ORDERED: ACETAMINOPHEN 325 MG TABLET (FP) ONE (23:10)
[2022-03-19] MEDS ORDERED: APIXABAN 5 MG TABLET PO SCH (23:30)
[2022-03-19] MEDS ORDERED: APIXABAN 5 MG TABLET ONE (23:52)
[2022-03-20] MEDS ORDERED: MAGNESIUM SULF 50% (8.12 MEQ/2 ML-1 GM VIAL) IVPB ONE (00:04)
[2022-03-20] MEDS ORDERED: MAGNESIUM SULFATE IN WATER 2 GM/50 ML IVPB IVPB ONE (00:04)
[2022-03-20] MEDS ORDERED: ALBUTEROL SO4 2.5/IPRATROPIUM 0.5 INH SOL 3 ML VIAL.NEB. NEB PRN (00:14)
[2022-03-20 04:31] VITALS: BMI 30.9
[2022-03-20 08:24] LABS: BASO % 0.9 % (0-2.0); HEMATOCRIT 46.4 % (35.4-49); HEMOGLOBIN 15.4 GM/dL (11.7-16.9); LYMPH % 16.2 % (8-40); MCH 29.7 pg (25.7-33.7); MCHC 33.2 g/dl (32.0-35.9); MEAN CELL VOLUME 89.5 fl (80-96); MEAN PLT VOLUME 9.6 fl (7.5-11.1); MONO % 2.5 % (3.8-10.2); NEUT % 80.4 % (42.8-82.8); PLATELET COUNT 219 10^3/uL (134-434); RBC 5.19 M/mm3 (4.00-5.60); RDW 13.1 % (11.9-15.9); WHITE BLOOD COUNT 5.4 K/mm3 (4.0-10.0)
[2022-03-20 08:34] LABS: CHLORIDE 107 mmol/L (98-107); SODIUM 140 mmol/L (136-145)
[2022-03-20 08:50] LABS: BLOOD UREA NITROGEN 8.7 mg/dL (7-18)
[2022-03-20 08:51] LABS: ALBUMIN 3.8 g/dl (3.4-5.0); ANION GAP 11 MMOL/L (8-16); CALCIUM 9.7 mg/dL (8.5-10.1); CO2 22 mmol/L (21-32); GLUCOSE,RANDOM 122 mg/dL (74-106); MAGNESIUM 2.4 mg/dL (1.8-2.4)
[2022-03-20 08:53] LABS: SGPT/ALT 28 U/L (13-61); TRIGLYCERIDES 51 mg/dL (0-150)
[2022-03-20 08:54] LABS: ALK PHOS 107 U/L (45-117); BILIRUBIN,TOTAL 0.6 mg/dL (0.2-1); CHOLESTEROL 168 mg/dL (50-200); CREATININE 1.2 mg/dL (0.55-1.3); HDL CHOLESTEROL 68 mg/dL (40-60); SGOT/AST 40 U/L (15-37)
[2022-03-20 08:55] LABS: LDL CHOLESTEROL (ONLY SJRH) 80 mg/dL (5-100)
[2022-03-20] MEDS: ASPIRIN 81 MG CHEWABLE TABLETS PO SCH (09:32)
[2022-03-20] MEDS: PANTOPRAZOLE 40 MG TABLET PO SCH (12:28)
[2022-03-20] MEDS: methylPREDNISolone NA SUCC 40 MG/1 ML VIAL IVPUSH SCH ×3 (12:28→21:34)
[2022-03-20] MEDS ORDERED: SODIUM CHLORIDE 1,000 ML IV SCH (13:15)
[2022-03-20] MEDS: RIVAROXABAN 20 MG TABLET PO SCH (17:24)
[2022-03-21] MEDS: methylPREDNISolone NA SUCC 40 MG/1 ML VIAL IVPUSH SCH ×4 (02:12→21:31)
[2022-03-21 08:45] LABS: BASO % 0.4 % (0-2.0); HEMATOCRIT 44.8 % (35.4-49); HEMOGLOBIN 14.7 GM/dL (11.7-16.9); LYMPH % 7.1 % (8-40); MCH 29.5 pg (25.7-33.7); MCHC 32.8 g/dl (32.0-35.9); MEAN PLT VOLUME 9.7 fl (7.5-11.1); MONO % 2.4 % (3.8-10.2); NEUT % 90.1 % (42.8-82.8); PLATELET COUNT 220 10^3/uL (134-434); RBC 4.98 M/mm3 (4.00-5.60); WHITE BLOOD COUNT 11.8 K/mm3 (4.0-10.0)
[2022-03-21 08:47] LABS: CHLORIDE 105 mmol/L (98-107); SODIUM 140 mmol/L (136-145)
[2022-03-21 08:55] LABS: CALCIUM 9.6 mg/dL (8.5-10.1)
[2022-03-21 08:56] LABS: ALBUMIN 3.7 g/dl (3.4-5.0); ANION GAP 10 MMOL/L (8-16); BLOOD UREA NITROGEN 16.2 mg/dL (7-18); CO2 25 mmol/L (21-32); GLUCOSE,RANDOM 117 mg/dL (74-106)
[2022-03-21 08:59] LABS: CREATININE 1.2 mg/dL (0.55-1.3); SGOT/AST 43 U/L (15-37); SGPT/ALT 29 U/L (13-61)
[2022-03-21 09:00] LABS: BILIRUBIN,TOTAL 0.5 mg/dL (0.2-1)
[2022-03-21 09:01] LABS: TOT PROT 7.3 g/dl (6.4-8.2)
[2022-03-21 09:02] LABS: ALK PHOS 91 U/L (45-117)
[2022-03-21 09:06] LABS: PH,URINE 5.5 (5.0-8.0); URINE APPEARANCE CLEAR; URINE BILIRUBIN NEGATIVE (NEGATIVE); URINE COLOR YELLOW; URINE GLUCOSE (UA) NEGATIVE (NEGATIVE); URINE KETONE NEGATIVE (NEGATIVE); URINE LEUK ESTERASE NEGATIVE (NEGATIVE); URINE NITRITE NEGATIVE (NEGATIVE); URINE PROTEIN NEGATIVE (NEGATIVE); URINE UROBILINOGEN 0.2 mg/dL (0.2-1.0)
[2022-03-21] MEDS: PANTOPRAZOLE 40 MG TABLET PO SCH (09:48)
[2022-03-21] MEDS: ASPIRIN 81 MG CHEWABLE TABLETS PO SCH (09:48)
[2022-03-21] MEDS: RIVAROXABAN 20 MG TABLET PO SCH (17:43)
[2022-03-22] MEDS: methylPREDNISolone NA SUCC 40 MG/1 ML VIAL IVPUSH SCH ×4 (02:17→22:50)
[2022-03-22] MEDS: PANTOPRAZOLE 40 MG TABLET PO SCH (10:07)
[2022-03-22] MEDS: ASPIRIN 81 MG CHEWABLE TABLETS PO SCH (10:07)
[2022-03-22] MEDS: RIVAROXABAN 20 MG TABLET PO SCH (17:11)
[2022-03-23 06:54] VITALS: RESP 17; TEMP 97.7
[2022-03-23 11:00] VITALS: BP 142/64; PULSE 98
[2022-03-23] MEDS: methylPREDNISolone NA SUCC 40 MG/1 ML VIAL IVPUSH SCH (11:09)
[2022-03-23] MEDS: PANTOPRAZOLE 40 MG TABLET PO SCH (11:09)
[2022-03-23] MEDS: ASPIRIN 81 MG CHEWABLE TABLETS PO SCH (11:09)
[2022-03-23] MEDS ORDERED: predniSONE 20 MG TABLET (UD) PO SCH (22:00)
== END 2022-03-23 12:47 | disposition home or self-care (01) ==
LOC: JER 19:25 → JERBED 23:11 → J4W 03-20 04:14
PROVIDERS: ADMIT Internal Medicine; ATTEND Family Medicine
PROC: 3E0F7GC Introduction of Other Therapeutic Substance into Respiratory Tract, Via Natural or Artificial Opening (ICD-10-PCS; principal; 2022-03-19)
PROC: 3E033GC Introduction of Other Therapeutic Substance into Peripheral Vein, Percutaneous Approach (ICD-10-PCS; 2022-03-19)
PROC: 3E0337Z Introduction of Electrolytic and Water Balance Substance into Peripheral Vein, Percutaneous Approach (ICD-10-PCS; 2022-03-19)
DX: J45.909 Unspecified asthma, uncomplicated (principal); Z79.01 Long term (current) use of anticoagulants; R09.89 Other specified symptoms and signs involving the circulatory and respiratory systems; R09.3 Abnormal sputum; E66.8 Other obesity; Z68.30 Body mass index [BMI] 30.0-30.9, adult; Z86.711 Personal history of pulmonary embolism; F17.210 Nicotine dependence, cigarettes, uncomplicated; Z88.0 Allergy status to penicillin; R06.00 Dyspnea, unspecified
CPT/HCPCS: 0241U-QW; 36415; 71046-TC-FY; 71275-TC; 80053; 80061; 81003; 83036; 83735; 84443; 84484; 85025; 85610; 93005; 93010; 93306-TC; 94640; 96361; 96374; 96375; 99285-25; G0378